=== PATIENT | male | born 1975 | race Hispanic/Latino ===

== ENCOUNTER 2020-06-08 14:44 | Emergency (ER) | payer OTHER ==
[2020-06-08] MEDS ORDERED: NA CHLORIDE 0.9% 1,000 ML ONE (16:08)
[2020-06-08 16:10] LABS: Urine Blood NEGATIVE (NEG); Urine Glucose 2+ (NEG); Urine Protein 1+ (NEG); Urine Specific Gravity 1.025 (1.005-1.030); Urine pH 5.5 (5.0-7.0)
[2020-06-08 16:19] LABS: Absolute Lymphocytes (CBC) 1.4 K/uL (0.7-4.9); Basophils % 0.9 % (0-1.3); Hematocrit 50.3 % (39.6-49.0); Lymphocytes % 31.2 % (15.3-44.8); MPV 8.8 fL (7.6-11.3); RBC Red Blood Cell Count 5.77 M/uL (4.33-5.43)
[2020-06-08 16:37] LABS: BUN Blood Urea Nitrogen 16 mg/dL (7-18); Bicarbonate 26 mmol/L (21-32); Glucose Level 304 mg/dL (74-106); Potassium 4.1 mmol/L (3.5-5.1); Sodium Level 139 mmol/L (136-145)
--- NOTE | 2020-06-08 16:40 | EDPHYS ---
Physician Documentation [facility] Name: Raul Higgins Age: 44 yrs Sex: Male : 1975 Arrival Date: 06/08/2020 Time: 14:48 Bed 6 Private MD: ED Physician Devon Major HPI: 06/08 15:27 This 44 yrs old Male presents to ER via Ambulatory with complaints of Fever, kb Headache, Sinus Congestion. 15:38 The patient or guardian reports flu symptoms, low-grade fever, myalgias. Onset: The kb symptoms/episode began/occurred 4 day(s) ago. Severity of symptoms: At their worst the symptoms were moderate, in the emergency department the symptoms are unchanged. Modifying factors: The symptoms are alleviated by nothing, the symptoms are aggravated by nothing. Associated signs and symptoms: Pertinent positives: fever, Pertinent negatives: chest pain, diarrhea, ear ache, nausea, rhinorrhea, sore throat, vomiting. The patient has not experienced similar symptoms in the past. The patient has not recently seen a physician. Pt reports headache, congestion, body aches, fever and chills for 4 days. . Historical: - Allergies: 14:58 NKDA; ll1 - Home Meds: 15:32 metformin 500 mg oral tab 2 tabs [Active]; losartan 50 mg oral tab [Active]; zb Glimepiride Oral [Active]; Januvia 100 mg oral tab [Active]; - PMHx: 14:58 Diabetes - NIDDM; Heart Murmur; ll1 - PSHx: 14:58 eye; ll1 - Immunization history:: Flu vaccine is not up to date. - Social history:: Smoking status: Patient denies any tobacco usage or history of. ROS: 15:27 ENT: Negative for injury, pain, and discharge, Neck: Negative for injury, pain, and kb swelling, Cardiovascular: Negative for chest pain, palpitations, and edema, Respiratory: Negative for shortness of breath, cough, wheezing, and pleuritic chest pain, Abdomen/GI: Negative for abdominal pain, nausea, vomiting, diarrhea, and constipation, Back: Negative for injury and pain, MS/Extremity: Negative for injury and deformity, Skin: Negative for injury, rash, and discoloration. 15:27 Constitutional: Positive for body aches, chills, fever, malaise. 15:27 Neuro: Positive for headache. Exam: 15:27 Constitutional: This is a well developed, well nourished patient who is awake, alert, kb and in no acute distress. Head/Face: Normocephalic, atraumatic. Cardiovascular: Regular rate and rhythm with a normal S1 and S2. No gallops, murmurs, or rubs. Normal PMI, no JVD. No pulse deficits. Respiratory: Lungs have equal breath sounds bilaterally, clear to auscultation and percussion. No rales, rhonchi or wheezes noted. No increased work of breathing, no retractions or nasal flaring. Abdomen/GI: Soft, non-tender, with normal bowel sounds. No distension or tympany. No guarding or rebound. No evidence of tenderness throughout. Skin: Warm, dry with normal turgor. Normal color with no rashes, no lesions, and no evidence of cellulitis. MS/ Extremity: Pulses equal, no cyanosis. Neurovascular intact. Full, normal range of motion. Neuro: Awake and alert, GCS 15, oriented to person, place, time, and situation. Cranial nerves II-XII grossly intact. Motor strength 5/5 in all extremities. Sensory grossly intact. Cerebellar exam normal. Normal gait. Vital Signs: 14:56 BP 137 / 100; Pulse 100; Resp 18; Temp 99.6; Pulse Ox 100% ; Weight 99.79 kg; Height 5 ll1 ft. 8 in. (172.72 cm); Pain 5/10; 17:10 BP 122 / 89; Pulse 87; Resp 18; Temp 98.7; Pulse Ox 100% on R/A; ph 14:56 Body Mass Index 33.45 (99.79 kg, 172.72 cm) ll1 MDM: 15:00 Patient medically screened. kb 15:27 Data reviewed: vital signs, nurses notes. Data interpreted: Pulse oximetry: on room air kb is 100 %. Interpretation: normal. 15:27 Counseling: I had a detailed discussion with the patient and/or guardian regarding: the kb historical points, exam findings, and any diagnostic results supporting the discharge/admit diagnosis, lab results, the need for outpatient follow up, a family practitioner, to return to the emergency department if symptoms worsen or persist or if there are any questions or concerns that arise at home. 06/08 15:01 Order name: Flu; Complete Time: 15:51 kb 06/08 15:52 Order name: CBC with Diff; Complete Time: 16:23 kb 06/08 15:52 Order name: Basic Metabolic Panel; Complete Time: 16:39 kb 06/08 15:52 Order name: Acetone, Serum; Complete Time: 16:39 kb 06/08 16:05 Order name: COVID-19; Complete Time: 10:28 kb 06/08 16:06 Order name: Urine Dipstick--Ancillary (enter results); Complete Time: 16:11 bd 06/08 15:04 Order name: Urine Dipstick-Ancillary (obtain specimen); Complete Time: 15:45 kb 06/08 15:52 Order name: IV Start; Complete Time: 16:12 kb Administered Medications: 16:04 Drug: NS 0.9% 1000 ml Route: IV; Rate: 1000 ml; Site: right forearm; zb 17:09 Follow up: Response: No adverse reaction; IV Status: Completed infusion; IV Intake: ph 1000ml Disposition: 06/09 08:32 Co-signature as Attending Physician, Devon Major MD I agree with the assessment and kdr plan of care. Disposition: 06/08/20 16:39 Discharged to Home. Impression: Acute upper respiratory infection, unspecified. - Condition is Stable. - Discharge Instructions: Viral Respiratory Infection, [id number], COVID-19. - Medication Reconciliation Form, Thank You Letter, Antibiotic Education, Prescription Opioid Use, Work release form form. - Follow up: Emergency Department; When: As needed; Reason: Worsening of condition. Follow up: Private Physician; When: 2 - 3 days; Reason: Recheck today's complaints, Continuance of care, Re-evaluation by your physician. Addendum: 06/11/2020 10:31 Addendum: Pt notified of + COVID result, is feeling better, 06/11/20 \T\ 10:30. . rn Signatures: Dispatcher [employer] Annette Rodriguez, JAGJIT CAIN-Devon Otto MD MD kdr Nieto, Roman, MD MD rn Hall, Patricia, RN RN Dionte Pickering RN RN [facility] Brown, Darshana, RN RN zb Corrections: (The following items were deleted from the chart) 06/08 17:10 16:39 06/08/2020 16:39 Discharged to Home. Impression: Acute upper respiratory ph infection, unspecified. Condition is Stable. Forms are Medication Reconciliation Form, Thank You Letter, Antibiotic Education, Prescription Opioid Use. Follow up: Emergency Department; When: As needed; Reason: Worsening of condition. Follow up: Private Physician; When: 2 - 3 days; Reason: Recheck today's complaints, Continuance of care, Re-evaluation by your physician. kb
--- NOTE | 2020-06-08 16:40 | ER ---
Nurse's Notes [facility] Name: Raul Higgins Age: 44 yrs Sex: Male : 1975 Arrival Date: 06/08/2020 Time: 14:48 Bed 6 Private MD: Diagnosis: Acute upper respiratory infection, unspecified Presentation: 06/08 14:56 Chief complaint: Patient states: Fatigue, fever, RICO, body aches since Sunday. ll1 Coronavirus screen: Client denies travel out of the [place] in the last 14 days. congestion, fatigue, fever, Client presents with at least one sign or symptom that may indicate coronavirus-19. Standard/surgical mask placed on the client. Ebola Screen: Patient denies travel to an Ebola-affected area in the 21 days before illness onset. Initial Sepsis Screen: Does the patient meet any 2 criteria? HR > 90 bpm. Does the patient have a suspected source of infection? No. Patient's initial sepsis screen is negative. Risk Assessment: Do you want to hurt yourself or someone else? Patient reports no desire to harm self or others. Onset of symptoms was June 05, 2020. 14:56 Method Of Arrival: Ambulatory ll1 14:56 Acuity: YAS 3 ll1 Historical: - Allergies: 14:58 NKDA; ll1 - Home Meds: 15:32 metformin 500 mg oral tab 2 tabs [Active]; losartan 50 mg oral tab [Active]; zb Glimepiride Oral [Active]; Januvia 100 mg oral tab [Active]; - PMHx: 14:58 Diabetes - NIDDM; Heart Murmur; ll1 - PSHx: 14:58 eye; ll1 - Immunization history:: Flu vaccine is not up to date. - Social history:: Smoking status: Patient denies any tobacco usage or history of. Screenin:28 Abuse screen: Denies threats or abuse. Denies injuries from another. Nutritional zb screening: No deficits noted. Tuberculosis screening: No symptoms or risk factors identified. Fall Risk None identified. Assessment: 15:25 General: Appears in no apparent distress. comfortable, Behavior is calm, cooperative, zb appropriate for age, Reports chills for fever for feeling ill for. Pain: Complains of pain in top of head Pain currently is 5 out of 10 on a pain scale. Quality of pain is described as aching, Pain began 2-3 days ago. Is continuous. Neuro: Level of Consciousness is awake, alert, obeys commands, Oriented to person, place, time, situation. Cardiovascular: Capillary refill < 3 seconds in bilateral fingers. Respiratory: Reports cough that is productive, Airway is patent Respiratory effort is even, unlabored, Respiratory pattern is regular. GI: No signs and/or symptoms were reported involving the gastrointestinal system. Abdomen is round. : No signs and/or symptoms were reported regarding the genitourinary system. EENT: No signs and/or symptoms were reported regarding the EENT system. Derm: Skin is intact, is healthy with good turgor, Skin is pink, warm \T\ dry. Musculoskeletal: Circulation, motion, and sensation intact. Capillary refill < 3 seconds, in bilateral fingers. Vital Signs: 14:56 BP 137 / 100; Pulse 100; Resp 18; Temp 99.6; Pulse Ox 100% ; Weight 99.79 kg; Height 5 ll1 ft. 8 in. (172.72 cm); Pain 5/10; 17:10 BP 122 / 89; Pulse 87; Resp 18; Temp 98.7; Pulse Ox 100% on R/A; ph 14:56 Body Mass Index 33.45 (99.79 kg, 172.72 cm) ll1 ED Course: 14:48 Patient arrived in ED. as 14:54 Annette Tapia FNP-C [facility]. kb 14:54 Devon Major MD is Attending Physician. kb 14:58 Triage completed. ll1 14:58 Arm band placed on Patient placed in an exam room, on a stretcher. ll1 15:01 Darshana Rivera, YANG is Primary Nurse. zb 15:15 Flu Sent. hb 15:28 Patient has correct armband on for positive identification. Bed in low position. Call zb light in reach. Side rails up X 1. Pulse ox on. Door closed. Noise minimized. 15:30 Inserted saline lock: 20 gauge in right antecubital area, using aseptic technique. zb 15:48 Urine collected: clean catch specimen, clear, Flu and/or RSV swab sent to lab. 5 17:09 No provider procedures requiring assistance completed. IV discontinued, intact, ph bleeding controlled, No redness/swelling at site. Pressure dressing applied. Administered Medications: 16:04 Drug: NS 0.9% 1000 ml Route: IV; Rate: 1000 ml; Site: right forearm; zb 17:09 Follow up: Response: No adverse reaction; IV Status: Completed infusion; IV Intake: ph 1000ml Intake: 17:09 IV: 1000ml; Total: 1000ml. ph Outcome: 16:39 Discharge ordered by . jennifer 17:10 Discharged to home ambulatory. ph 17:10 Condition: good 17:10 Discharge instructions given to patient, Instructed on discharge instructions, follow up and referral plans. Demonstrated understanding of instructions, follow-up care. 17:10 Patient left the ED. ph Signatures: Annette Tapia, SENIOR INFORMATICA DEVELOPER-C SENIOR INFORMATICA DEVELOPER-Aure Kebede Patricia, RN RN Belen Selby, RN RN Carine Josue [facility] Dionte Pickering RN RN 1 Darshana Rivera RN RN zb Corrections: (The following items were deleted from the chart) 15:33 15:25 General: Appears in no apparent distress. comfortable, Behavior is calm, zb cooperative, appropriate for age, zb 15:33 15:25 Respiratory: Airway is patent Respiratory effort is even, unlabored, Respiratory zb pattern is regular, zb
[2020-06-09 00:26] VITALS: O2SAT 100
[2020-06-09 00:28] VITALS: BP 122/89; TEMP 98.7
== END 2020-06-08 17:10 | disposition home or self-care (01) ==
LOC: ER 14:44
DX: U07.1 COVID-19 (principal); J06.9 Acute upper respiratory infection, unspecified; E11.9 Type 2 diabetes mellitus without complications
CPT/HCPCS: 85025; 80048; 36415; 82010; 81003; 87804 ×2; 96360; 99284; U0002; J7030

== ENCOUNTER 2020-06-14 20:37 | Emergency (ER) | payer OTHER ==
[2020-06-14 22:31] LABS: Absolute Lymphocytes (CBC) 0.7 K/uL (0.7-4.9); Basophils % 0.5 % (0-1.3); Hematocrit 47.5 % (39.6-49.0); Lymphocytes % 11.4 % (15.3-44.8); MPV 8.4 fL (7.6-11.3); RBC Red Blood Cell Count 5.62 M/uL (4.33-5.43)
[2020-06-14 22:35] LABS: Arterial Blood Carboxyhemoglob 1.1 % (0-1.5); Blood Gas Oxyhemoglobin 88.6 % (94-97); Blood O2 Saturation 90.7 % (92-98.5)
[2020-06-14 22:40] LABS: Protime INR 1.09
[2020-06-14 22:53] LABS: ALT/SGPT 152 U/L (12-78); AST/SGOT 102 U/L (15-37); Albumin 3.1 g/dL (3.4-5.0); Alkaline Phosphatase 86 U/L (45-117); BUN Blood Urea Nitrogen 13 mg/dL (7-18); Bicarbonate 25 mmol/L (21-32); Bilirubin Direct 0.2 mg/dL (0-0.2); Bilirubin Total 0.8 mg/dL (0.2-1.0); Ferritin 477.5 ng/mL (26-388); Glucose Level 278 mg/dL (74-106); Lipase 176 U/L (73-393); Potassium 3.8 mmol/L (3.5-5.1); Protein, Total 8.4 g/dL (6.4-8.2); Sodium Level 135 mmol/L (136-145); Troponin (Emerg Dept Use Only) < 0.02 ng/mL (0.0-0.045)
[2020-06-14] MEDS ORDERED: NA CHLORIDE 0.9% 250 ML ONE (23:01)
[2020-06-14] MEDS ORDERED: AZITHROMYCIN 500 MG INJ IVPB ONE (23:01)
[2020-06-14] MEDS ORDERED: dexAMETHasone 4 MG/ML VIAL ONE (23:01)
[2020-06-14] MEDS ORDERED: dexAMETHasone 10 MG/ML VIAL ONE (23:22)
--- NOTE | 2020-06-15 00:27 | ER ---
Nurse's Notes [facility] Name: Raul Higgins Age: 44 yrs Sex: Male : 1975 Arrival Date: 06/14/2020 Time: 20:38 Bed 2 Private MD: Diagnosis: Bilateral pneumonia. Positive Covid - 19 Presentation: 06/14 21:00 Chief complaint: Patient states: was diagnosed covid on Sunday, was suppose to start em Z-pack but has not started medication, reports SOB, fever, chills, and cough. Coronavirus screen: Client reports previous positive COVID test result. Date of collection: June 11, 2020. Ebola Screen: Patient negative for fever greater than or equal to 101.5 degrees Fahrenheit, and additional compatible Ebola Virus Disease symptoms Patient denies exposure to infectious person. Patient denies travel to an Ebola-affected area in the 21 days before illness onset. No symptoms or risks identified at this time. Initial Sepsis Screen: Does the patient meet any 2 criteria? RR > 20 per min. HR > 90 bpm. Does the patient have a suspected source of infection? Yes: Productive cough/pneumonia. Risk Assessment: Do you want to hurt yourself or someone else? Patient reports no desire to harm self or others. Onset of symptoms was June 11, 2020. 21:00 Method Of Arrival: Ambulatory em 21:00 Acuity: YAS 3 em Historical: - Allergies: 21:03 NKDA; em - Home Meds: 21:03 Glimepiride Oral [Active]; Januvia 100 mg Oral tab [Active]; losartan 50 mg Oral tab em [Active]; metformin 500 mg Oral tab 2 tabs [Active]; - PMHx: 21:03 Diabetes - NIDDM; Heart Murmur; em - PSHx: 21:03 None; em - Immunization history:: Adult Immunizations up to date. - Social history:: Smoking status: Patient denies any tobacco usage or history of. Screenin:08 Abuse screen: Denies threats or abuse. Nutritional screening: No deficits noted. em Tuberculosis screening: No symptoms or risk factors identified. Fall Risk None identified. Assessment: 21:08 General: Appears in no apparent distress. uncomfortable, Behavior is calm, cooperative, em appropriate for age, Reports chills for 2-3 days, fever for 2-3 days. Pain: Denies pain. Neuro: Level of Consciousness is awake, alert, obeys commands, Oriented to person, place, time, situation. Cardiovascular: Denies chest pain, Capillary refill < 3 seconds Patient's skin is warm and dry. Rhythm is sinus tachycardia. Respiratory: Reports shortness of breath on exertion cough that is productive, pain with cough Airway is patent Respiratory effort is even, unlabored, Respiratory pattern is regular. GI: Patient currently denies nausea, vomiting. Derm: Skin is intact, is healthy with good turgor, Skin is pink, warm \T\ dry. Musculoskeletal: Capillary refill < 3 seconds, Range of motion: intact in all extremities. 22:38 Reassessment: Patient appears in no apparent distress at this time. Patient and/or em family updated on plan of care and expected duration. Pain level reassessed. Patient is alert, oriented x 3, equal unlabored respirations, skin warm/dry/pink. 23:39 Reassessment: Patient appears in no apparent distress at this time. Patient and/or em family updated on plan of care and expected duration. Pain level reassessed. Patient is alert, oriented x 3, equal unlabored respirations, skin warm/dry/pink. 06/15 00:00 Reassessment: Provider at bedside, pt refused inpatient, states he would take ea antibiotics and steroids at home. 00:26 Reassessment: Patient and/or family updated on plan of care and expected duration. Pain ea level reassessed. Patient is alert, oriented x 3, equal unlabored respirations, skin warm/dry/pink. 00:38 Reassessment: Patient and/or family updated on plan of care and expected duration. Pain ea level reassessed. Patient is alert, oriented x 3, equal unlabored respirations, skin warm/dry/pink. Discharge instruction given to patient, verbalized the understanding of instruction. Pt left ED ambulatory tolerating well. Vital Signs: 06/14 21:00 BP 118 / 98; Pulse 108; Resp 22; Temp 98.6; Pulse Ox 94% on R/A; Weight 99.79 kg; em Height 5 ft. 8 in. (172.72 cm); Pain 0/10; 22:38 BP 141 / 94; Pulse 92; Resp 20; Pulse Ox 94% on R/A; em 23:39 BP 122 / 87; Pulse 92; Resp 16; Pulse Ox 95% on R/A; em 06/15 00:26 BP 125 / 89; Pulse 88; Resp 18; Pulse Ox 95% ; ea 00:36 BP 133 / 91; Pulse 80; Resp 18; Pulse Ox 98% on R/A; ea 06/14 21:00 Body Mass Index 33.45 (99.79 kg, 172.72 cm) em ED Course: 06/14 20:38 Patient arrived in ED. cl3 20:56 Blessing Jama, RN is Primary Nurse. ea 20:56 Primary Nurse role handed off by Blessing Jama, RN em 20:56 Jose Luis Mayo, RN is Primary Nurse. em 20:58 Miguel Angel Hardwick MD is Attending Physician. pkl 21:03 Triage completed. em 21:03 Arm band placed on. em 21:08 Patient has correct armband on for positive identification. Placed in gown. Bed in low em position. Call light in reach. Side rails up X2. quality assurance monitor final on. Pulse ox on. NIBP on. 22:03 CXR XRAY In Process Unspecified. EDMS 22:06 CT Chest Wo Con In Process Unspecified. EDMS 22:26 Inserted saline lock: 20 gauge in right forearm, using aseptic technique. Blood dh4 collected. 22:30 EKG done, by ED staff, reviewed by Miguel Angel Harwdick MD. ds4 06/15 00:37 No provider procedures requiring assistance completed. IV discontinued, intact, ea bleeding controlled, No redness/swelling at site. Pressure dressing applied. Administered Medications: 06/14 22:52 Drug: Dexamethasone 6 mg Route: IVP; Site: right forearm; ea 06/15 00:02 Follow up: Response: No adverse reaction ea 06/14 23:15 Drug: AZITHromycin 500 mg Route: IVPB; Infused Over: 1 hrs; Site: right antecubital; ea 06/15 00:02 Follow up: Response: No adverse reaction; IV Status: Completed infusion ea Outcome: 00:26 Discharge ordered by . pkl 00:37 Discharged to home ambulatory. ea 00:37 Condition: stable 00:37 Discharge instructions given to patient, Instructed on discharge instructions, follow up and referral plans. medication usage, Demonstrated understanding of instructions, follow-up care, medications, Prescriptions given X 1. 00:39 Patient left the ED. ea Signatures: Dispatcher [employer] Miguel Angel Schumacher MD MD pkl Munoz, Edgar, RN RN Edwin Toth ds4 Blessing Jama RN RN ea Lewis, Charde cl3 Trey [place] 4
--- NOTE | 2020-06-15 00:27 | EDPHYS ---
Physician Documentation [facility] Name: Raul Higgins Age: 44 yrs Sex: Male : 1975 Arrival Date: 06/14/2020 Time: 20:38 Bed 2 Private MD: ED Physician Miguel Angel Hardwick HPI: 06/14 21:49 This 44 yrs old Male presents to ER via Ambulatory with complaints of Chest pkl Congestion, Breathing Difficulty. 21:49 The patient has shortness of breath at rest. Onset: The symptoms/episode began/occurred pkl today, cough with whitish sputum. Associated signs and symptoms: Pertinent positives: fever. Historical: - Allergies: 21:03 NKDA; em - Home Meds: 21:03 Glimepiride Oral [Active]; Januvia 100 mg Oral tab [Active]; losartan 50 mg Oral tab em [Active]; metformin 500 mg Oral tab 2 tabs [Active]; - PMHx: 21:03 Diabetes - NIDDM; Heart Murmur; em - PSHx: 21:03 None; em - Immunization history:: Adult Immunizations up to date. - Social history:: Smoking status: Patient denies any tobacco usage or history of. ROS: 21:52 Eyes: Negative for injury, pain, redness, and discharge, ENT: Negative for injury, pkl pain, and discharge, Neck: Negative for injury, pain, and swelling, Cardiovascular: Negative for chest pain, palpitations, and edema. 21:52 Respiratory: Positive for cough, with white sputum, shortness of breath. 21:52 Abdomen/GI: Negative for abdominal pain, nausea, vomiting, and diarrhea. 21:52 Back: Negative for acute changes. 21:52 : Negative for urinary symptoms. 21:52 MS/extremity: Negative for acute changes. 21:52 Skin: Negative for rash. 21:52 Neuro: Negative for altered mental status, loss of consciousness. Exam: 21:52 Head/Face: Normocephalic, atraumatic. Eyes: Pupils equal round and reactive to light, pkl extra-ocular motions intact. Lids and lashes normal. Conjunctiva and sclera are non-icteric and not injected. Cornea within normal limits. Periorbital areas with no swelling, redness, or edema. ENT: Nares patent. No nasal discharge, no septal abnormalities noted. Tympanic membranes are normal and external auditory canals are clear. Oropharynx with no redness, swelling, or masses, exudates, or evidence of obstruction, uvula midline. Mucous membranes moist. Neck: Trachea midline, no thyromegaly or masses palpated, and no cervical lymphadenopathy. Supple, full range of motion without nuchal rigidity, or vertebral point tenderness. No Meningismus. Chest/axilla: Normal chest wall appearance and motion. Nontender with no deformity. No lesions are appreciated. Cardiovascular: Regular rate and rhythm with a normal S1 and S2. No gallops, murmurs, or rubs. Normal PMI, no JVD. No pulse deficits. Respiratory: Lungs have equal breath sounds bilaterally, clear to auscultation and percussion. No rales, rhonchi or wheezes noted. No increased work of breathing, no retractions or nasal flaring. Abdomen/GI: Soft, non-tender, with normal bowel sounds. No distension or tympany. No guarding or rebound. No evidence of tenderness throughout. Back: No spinal tenderness. No costovertebral tenderness. Full range of motion. Skin: Warm, dry with normal turgor. Normal color with no rashes, no lesions, and no evidence of cellulitis. MS/ Extremity: Pulses equal, no cyanosis. Neurovascular intact. Full, normal range of motion. Neuro: Awake and alert, GCS 15, oriented to person, place, time, and situation. Cranial nerves II-XII grossly intact. Motor strength 5/5 in all extremities. Sensory grossly intact. Cerebellar exam normal. Normal gait. Vital Signs: 21:00 BP 118 / 98; Pulse 108; Resp 22; Temp 98.6; Pulse Ox 94% on R/A; Weight 99.79 kg; em Height 5 ft. 8 in. (172.72 cm); Pain 0/10; 22:38 BP 141 / 94; Pulse 92; Resp 20; Pulse Ox 94% on R/A; em 23:39 BP 122 / 87; Pulse 92; Resp 16; Pulse Ox 95% on R/A; em 06/15 00:26 BP 125 / 89; Pulse 88; Resp 18; Pulse Ox 95% ; ea 00:36 BP 133 / 91; Pulse 80; Resp 18; Pulse Ox 98% on R/A; ea 06/14 21:00 Body Mass Index 33.45 (99.79 kg, 172.72 cm) em MDM: 06/14 20:59 Patient medically screened. pkl 23:56 Data reviewed: vital signs, nurses notes, lab test result(s), EKG, radiologic studies, pkl CT scan, plain films. 06/15 00:19 ED course: Patient feeling better. Discussed lab and imaging studies with patient. pkl Options for inpatient and outpatient treatments offered to patient. Patient decided on outpatient treatment at this time. Will return if symptoms are worse. Advised to follow up with PCP in 2 to 3 days. Patient understood instructions. 06/14 21:42 Order name: Blood Culture Adult (2) 06/14 21:42 Order name: BMP; Complete Time: 23:14 06/14 21:42 Order name: C-Reactive Protein; Complete Time: 23:14 06/14 21:42 Order name: CBC with Diff; Complete Time: 23:14 06/14 21:42 Order name: D-Dimer; Complete Time: 23:14 06/14 21:42 Order name: Ferritin; Complete Time: 23:14 06/14 21:42 Order name: Flu; Complete Time: 23:50 06/14 21:42 Order name: Lactate; Complete Time: 23:14 06/14 21:42 Order name: LFT's; Complete Time: 23:14 06/14 21:42 Order name: Lipase; Complete Time: 23:14 06/14 21:42 Order name: Procalcitonin; Complete Time: 23:50 06/14 21:42 Order name: PT-INR; Complete Time: 23:14 06/14 21:42 Order name: Ptt, Activated; Complete Time: 23:14 06/14 21:42 Order name: Troponin (emerg Dept Use Only); Complete Time: 23:14 06/14 21:42 Order name: CXR XRAY 06/14 21:42 Order name: EKG; Complete Time: 21:43 06/14 21:42 Order name: Cardiac monitoring; Complete Time: 22:29 06/14 21:42 Order name: Droplet/Contact Precautions; Complete Time: 22:15 06/14 21:42 Order name: EKG - Nurse/Tech; Complete Time: 22:27 06/14 21:42 Order name: IV Start; Complete Time: 22:15 ea 06/14 21:42 Order name: Labs collected and sent; Complete Time: 22:15 06/14 21:42 Order name: O2 Per Protocol; Complete Time: 22:15 ea 06/14 21:42 Order name: O2 Sat Monitoring; Complete Time: 22:15 ea 06/14 21:45 Order name: ABG; Complete Time: 23:14 pkl 06/14 21:45 Order name: CT Chest Wo Con pkl Administered Medications: 06/14 22:52 Drug: Dexamethasone 6 mg Route: IVP; Site: right forearm; ea 06/15 00:02 Follow up: Response: No adverse reaction 06/14 23:15 Drug: AZITHromycin 500 mg Route: IVPB; Infused Over: 1 hrs; Site: right antecubital; ea 06/15 00:02 Follow up: Response: No adverse reaction; IV Status: Completed infusion ea Disposition: 06/15/20 00:26 Discharged to Home. Impression: Bilateral pneumonia. Positive Covid - 19. - Condition is Stable. - Medication Reconciliation Form, Thank You Letter, Antibiotic Education, Prescription Opioid Use form. - Follow up: Private Physician; When: 2 - 3 days; Reason: Re-evaluation by your physician. - Problem is new. - Symptoms have improved. Signatures: Dispatcher [employer] Miguel Angel Schumacher MD MD pkl Munoz, Edgar RN RN em Carlos Hernandez, CONTOUR PATH TAPE MILL OPERATOR-C CONTOUR PATH TAPE MILL OPERATOR-Cla1 Blessing Jama RN RN ea Corrections: (The following items were deleted from the chart) 00:39 00:26 06/15/2020 00:26 Discharged to Home. Impression: Bilateral pneumonia. Positive ea Covid - 19. Condition is Stable. Forms are Medication Reconciliation Form, Thank You Letter, Antibiotic Education, Prescription Opioid Use. Follow up: Private Physician; When: 2 - 3 days; Reason: Re-evaluation by your physician. Problem is new. Symptoms have improved. pkl
--- NOTE | 2020-06-15 06:59 | RAD REPORT ---
EXAM DESCRIPTION: RAD - Chest Single View - 06/14/2020 10:04 pm CLINICAL HISTORY: CONGESTION, positive COVID test several days earlier, shortness of breath, fever a nd chills COMPARISON: Portable April 2015 TECHNIQUE: AP portable chest image was obtained 06/14/2020 10:04 pm . FINDINGS: Lung volumes are very low which increases interstitial opacification. A few patchy areas o f alveolar opacity seen in each medial lower lung field medial left base. Left costophrenic angle liza nting present. Heart and vasculature are normal. No pneumothorax. No acute bony abnormality seen. No acute aortic findings suspected. IMPRESSION: Exam is very limited by body habitus affects and shallow inspiration. There are patchy opacities in the lung bonilla consistent with pneumonia including COVID-19 pneumonia.
[2020-06-15 07:14] VITALS: TEMP 98.6
[2020-06-15 07:19] VITALS: BP 133/91; O2SAT 98
--- NOTE | 2020-06-15 10:53 | RAD REPORT ---
EXAM DESCRIPTION: CT - Thorax Wo Con - 06/15/2020 6:34 am CLINICAL HISTORY: 44 years Male positive Covid - 19 COMPARISON None. TECHNIQUE: Contiguous axial images obtained through the chest without IV contrast. Reformatted image s obtained. This exam was performed according to our department optimization program which includes automated exp osure control, adjustment of the mA and/or kv according to patient size and/or use of iterative recon struction technique. FINDINGS: The visualized upper abdominal organs appear unremarkable. No pericardial effusion. The mediastinum appears unremarkable. No aneurysmal dilatation of the thoracic aorta. There are patchy coarse bilateral infiltrates which could be secondary to an infectious process inclu ding covid pneumonia. No pleural effusions. No pneumothorax. There is a calcified granuloma in the right lower lung. There are mild degenerative changes in the spine. IMPRESSION: There are coarse bilateral infiltrates which could be from an infectious process includi ng covid pneumonia. Electronically signed by: Marito Castellon MD 06/14/2020 10:22 PM PROFESSOR OF MUSICOLOGY Due to temporary technical issues with the PACS/Fluency reporting system, reports are being signed by the in house radiologists without review as a courtesy to insure prompt reporting. The interpreting radiologist is fully responsible for the content of the report.
--- NOTE | 2020-06-15 18:13 | EKG ---
Test Date: 2020-06-14 Test Time: 22:23:15 Leaf Fat Scraper: JERROD MEASUREMENT RESULTS: Intervals: Rate: 96 MS: 172 QRSD: 104 QT: 362 QTc: 457 Braymer: P: 63 MS: 172 QRS: 162 T: 13 INTERPRETIVE STATEMENTS: Sinus rhythm with fusion complexes Right axis deviation Abnormal ECG Compared to ECG 05/18/2015 18:22:36 Fusion complex(es) now present Right-axis deviation now present Electronically Signed On 06-15-20 18:11:22 BEEKEEPER FARMER by Tavo Jimenez
== END 2020-06-15 00:39 | disposition home or self-care (01) ==
LOC: ER 20:37
DX: U07.1 COVID-19 (principal); J18.9 Pneumonia, unspecified organism; E11.9 Type 2 diabetes mellitus without complications
CPT/HCPCS: 96365; 93005; 87040 ×2; 85025; 80048; 36415; 85610; 85379; 80076; 83605; 85730; 84484; 82728; 83690; 84145; 86140; 87804 ×2; 71250; 71045; 82805; 96375; 99285; J1100; J0456; J7050